=== PATIENT | male | born 1990 | race Two or more races ===

== ENCOUNTER 2017-12-25 20:35 | Emergency (ER) | payer MEDICAID ==
[~2017-12-25] VITALS: Ht 182.9 cm; Wt 73.0 kg
[2017-12-25 21:46] LABS: HEMATOCRIT 39.6 % (42.0-52.0); HEMOGLOBIN 12.9 G/DL (14.2-18.0); MEAN CORPUSCULAR VOLUME 85 FL (80-99); PLATELET COUNT 347 K/UL (150-450); RED BLOOD COUNT 4.65 M/UL (4.70-6.10); RED CELL DISTRIBUTION WIDTH 12.5 % (11.6-14.8)
[2017-12-25 22:00] LABS: ANION GAP 8 mmol/L (5-15); BLOOD UREA NITROGEN 13 mg/dL (7-18); CALCIUM 9.2 MG/DL (8.5-10.1); CARBON DIOXIDE 29 MMOL/L (21-32); CHLORIDE 104 MMOL/L (98-107); CREATININE 1.1 MG/DL (0.55-1.30); POTASSIUM 3.8 MMOL/L (3.5-5.1); SODIUM 141 MMOL/L (136-145)
[2017-12-25 22:05] LABS: ALANINE AMINOTRANSFERASE 54 U/L (12-78); ALBUMIN 3.6 G/DL (3.4-5.0); ALBUMIN/GLOBULIN RATIO 0.8 (1.0-2.7); ALKALINE PHOSPHATASE 126 U/L (46-116); ASPARTATE AMINO TRANSFERASE 31 U/L (15-37); BILIRUBIN,TOTAL 0.5 MG/DL (0.2-1.0)
[2017-12-25] MEDS ORDERED: HYDROcodone/Acetamin 10/325 tab ORAL ONE (22:45)
[2017-12-25] MEDS ORDERED: Venlafaxine XR 75mg cap ORAL ONE (22:45)
[2017-12-25] MEDS ORDERED: Promethazine Plain 6.25mg/5ml ORAL ONE (22:45)
[2017-12-25] MEDS ORDERED: Promethazine/DM 6.25mg/5ml ONE (23:39)
[2017-12-25] MEDS ORDERED: Venlafaxine XR 37.5mg cap ORAL ONE (23:40)
[2017-12-26 00:45] VITALS: BP 140/88
--- NOTE | 2017-12-26 00:53 | Emergency Room Report ---
History of Present Illness General Chief Complaint: General Complaint Source: Patient, EMS Present Illness HPI Patient presents with complaints of weakness and lightheadedness Patient reports that he was recently diagnosed with a rib fracture However he was not able to fill his pain medication also has left-sided rib pain Denies any shortness of breath Denies any vomiting or diarrhea Denies any back or flank pain Allergies: Coded Allergies: No Known Allergies (Unverified , 12/25/17) Patient History Past Medical History: see triage record Pertinent Family History: none Reviewed Nursing Documentation: PMH: Agreed; PSxH: Agreed Nursing Documentation-PMH History Of Psychiatric Problem: Yes - depression, anxiety Review of Systems All Other Systems: negative except mentioned in HPI Physical Exam Vital Signs Date Time Temp Pulse Resp B/P (MAP) Pulse Ox O2 Delivery O2 Flow Rate FiO2 12/25/17 20:31 98.8 85 16 140/88 99 Room Air 98.8 Sp02 EP Interpretation: reviewed, normal General Appearance: no apparent distress Head: normocephalic, atraumatic Eyes: bilateral eye PERRL, bilateral eye EOMI ENT: hearing grossly normal, normal pharynx Neck: full range of motion, supple Respiratory: lungs clear Cardiovascular #1: regular rate, rhythm, no edema Gastrointestinal: non tender, soft Musculoskeletal: normal inspection Neurologic: alert, oriented x3, responsive, vice president of nursing III-XII nml as tested Psychiatric: mood/affect normal, no suicidal/homicidal ideation, anxious - Patient did appear mildly anxious and pacing in the room Skin: other - Mildly Disheveled Lymphatic: no adenopathy Medical Decision Making Diagnostic Impression: Primary Impression: Drug abuse Additional Impression: Dehydration ER Course Multiple differentials considered Patient upon arrival requesting effexor, also states that he was not able to fill his pain medication Initial blood work was initiated patient does have positive amphetamine We asked him to have IV with hydration However the patient refuses that States that he feels better Upon going to reevaluate the patient he has eloped from the emergency room Please note that the patient did not voice any homicidal or suicidal thoughts Labs Test 12/25/17 21:06 12/25/17 23:08 White Blood Count 16.0 K/UL (4.8-10.8) Red Blood Count 4.65 M/UL (4.70-6.10) Hemoglobin 12.9 G/DL (14.2-18.0) Hematocrit 39.6 % (42.0-52.0) Mean Corpuscular Volume 85 FL (80-99) Mean Corpuscular Hemoglobin 27.8 PG (27.0-31.0) Mean Corpuscular Hemoglobin Concent 32.6 G/DL (32.0-36.0) Red Cell Distribution Width 12.5 % (11.6-14.8) Platelet Count 347 K/UL (150-450) Mean Platelet Volume 6.2 FL (6.5-10.1) Neutrophils (%) (Auto) % (45.0-75.0) Lymphocytes (%) (Auto) % (20.0-45.0) Monocytes (%) (Auto) % (1.0-10.0) Eosinophils (%) (Auto) % (0.0-3.0) Basophils (%) (Auto) % (0.0-2.0) Differential Total Cells Counted 100 Neutrophils % (Manual) 23 % (45-75) Lymphocytes % (Manual) 63 % (20-45) Monocytes % (Manual) 11 % (1-10) Eosinophils % (Manual) 1 % (0-3) Basophils % (Manual) 1 % (0-2) Band Neutrophils 1 % (0-8) Platelet Estimate Adequate Platelet Morphology Normal Red Blood Cell Morphology Normal Sodium Level 141 MMOL/L (136-145) Potassium Level 3.8 MMOL/L (3.5-5.1) Chloride Level 104 MMOL/L (98-107) Carbon Dioxide Level 29 MMOL/L (21-32) Anion Gap 8 mmol/L (5-15) Blood Urea Nitrogen 13 mg/dL (7-18) Creatinine 1.1 MG/DL (0.55-1.30) Estimat Glomerular Filtration Rate > 60 mL/min (>60) Glucose Level 83 MG/DL (74-106) Calcium Level 9.2 MG/DL (8.5-10.1) Total Bilirubin 0.5 MG/DL (0.2-1.0) Aspartate Amino Transf (AST/SGOT) 31 U/L (15-37) Alanine Aminotransferase (ALT/SGPT) 54 U/L (12-78) Alkaline Phosphatase 126 U/L (46-116) Total Protein 7.9 G/DL (6.4-8.2) Albumin 3.6 G/DL (3.4-5.0) Globulin 4.3 g/dL Albumin/Globulin Ratio 0.8 (1.0-2.7) Salicylates Level 1.1 ug/mL (2.8-20) Acetaminophen Level < 2 MCG/ML (10-30) Serum Alcohol < 3 mg/dL Urine Opiates Screen Negative (NEGATIVE) Urine Barbiturates Screen Negative (NEGATIVE) Phencyclidine (PCP) Screen Negative (NEGATIVE) Urine Amphetamines Screen Positive (NEGATIVE) Urine Benzodiazepines Screen Negative (NEGATIVE) Urine Cocaine Screen Negative (NEGATIVE) Urine Marijuana (THC) Screen Positive (NEGATIVE) Last Vital Signs Date Time Temp Pulse Resp B/P (MAP) Pulse Ox O2 Delivery O2 Flow Rate FiO2 12/26/17 00:45 98.8 16 140/88 99 Room Air 98.8 12/25/17 20:31 85 Status: improved Disposition: ELOPED Condition: Unknown Referrals: NOT CHOSEN IPA/,REFERRING (PCP) Riley Cerrato DO December 26, 2017 00:53
== END 2017-12-26 00:48 | disposition left against medical advice (07) ==
LOC: EDBD 20:35 → EMR 21:12
DX: F19.10 Other psychoactive substance abuse, uncomplicated (principal); E86.0 Dehydration; F41.9 Anxiety disorder, unspecified; F32.9 Major depressive disorder, single episode, unspecified; R07.81 Pleurodynia
CPT/HCPCS: 36415; 80053; 80307; 80329; 85007; 85025; 99283